=== PATIENT | male | born 1950 | race Caucasian/White ===

== ENCOUNTER 2021-07-25 13:47 | Emergency (ER) | payer MEDICARE ==
[~2021-07-25] VITALS: Ht 188 cm; Wt 82.0 kg
[2021-07-25 15:06] LABS: BASOPHILS # (AUTO) 0.1 X10'3 (0-0.2); BASOPHILS % (AUTO) 1.3 % (0-1); EOSINOPHILS # (AUTO) 0.4 X10'3 (0-0.9); EOSINOPHILS % (AUTO) 6.7 % (0-6); HEMATOCRIT 38.4 % (42.0-52.0); HEMOGLOBIN 13.5 g/dl (14.0-17.9); LYMPHOCYTES % (AUTO) 18.2 % (21-51); MEAN CORPUSCULAR HEMOGLOBIN 32.7 PG (27.0-31.0); MEAN CORPUSCULAR HGB CONC 35.2 g/dL (33.0-36.5); MEAN PLATELET VOLUME 7.8 FL (7.4-10.4); MONOCYTES # (AUTO) 0.4 X10'3 (0-0.9); MONOCYTES % (AUTO) 6.9 % (2-12); NEUTROPHILS # (AUTO) 3.9 X10'3 (1.8-7.7); NEUTROPHILS % (AUTO) 66.9 % (42-75); PLATELET COUNT 183 X10'3 (140-440); RED BLOOD COUNT 4.13 X10'6 (4.70-6.10); RED CELL DISTRIBUTION WIDTH 13.1 % (11.5-14.5); WHITE BLOOD COUNT 5.8 X10'3 (4.5-11.0)
[2021-07-25 15:17] LABS: ALANINE AMINOTRANSFERASE 24 U/L (12-78); ALBUMIN 4.3 G/DL (3.4-5.0); ALBUMIN/GLOBULIN RATIO 1.5 (1.1-1.5); ALKALINE PHOSPHATASE 71 IU/L (46-116); ANION GAP 8 (8-16); ASPARTATE AMINO TRANSFERASE 17 U/L (10-37); BILIRUBIN,TOTAL 0.8 MG/DL (0.1-1.0); BLOOD UREA NITROGEN 17 MG/DL (7-18); BUN/CREATININE RATIO 15.3 (5.4-32.0); CALCIUM 8.5 MG/DL (8.5-10.1); CHLORIDE 104 MMOL/L (99-107); CREATININE 1.11 MG/DL (0.60-1.10); GLUCOSE 112 MG/DL (70-104); POTASSIUM 4.6 MMOL/L (3.5-5.1); SODIUM 142 MMOL/L (135-145); TOTAL CARBON DIOXIDE 29.7 MMOL/L (24-32); TOTAL PROTEIN 7.1 G/DL (6.4-8.2); eGFR 65 ML/MIN
[2021-07-25 15:19] LABS: D-DIMER < 0.19 MG/L FEU (0-0.50)
[2021-07-25] MEDS ORDERED: PRED20TA PO (15:32)
[2021-07-25] MEDS ORDERED: VALA10002 PO (15:32)
[2021-07-25 15:52] VITALS: BP 118/64
== END 2021-07-25 15:53 | disposition home or self-care (01) ==
LOC: ER 13:48
DX: R07.9 Chest pain, unspecified (principal); B02.9 Zoster without complications
CPT/HCPCS: 36415; 71045; 80053; 83880; 84484; 85025; 85379; 93005; 99285

== ENCOUNTER 2022-06-25 09:25 | Outpatient (CLI) | payer OTHER, MEDICARE ==
[~2022-06-25 09:25] MED LIST: VALA10002 PO
== END 2022-06-25 23:59 | disposition home or self-care (01) ==
LOC: LAB 09:25
PROVIDERS: ATTEND Family Medicine
DX: K80.20 Calculus of gallbladder without cholecystitis without obstruction (principal); K63.89 Other specified diseases of intestine; I70.0 Atherosclerosis of aorta; R31.9 Hematuria, unspecified
CPT/HCPCS: 74176

== ENCOUNTER 2022-10-31 10:42 | Emergency (ER) | payer MEDICARE, OTHER ==
[~2022-10-31] VITALS: Ht 188 cm; Wt 86.0 kg
[2022-10-31] MEDS ORDERED: MEMA5TAB PO (11:21)
[2022-10-31] MEDS ORDERED: ATOR40TA PO (11:22)
[2022-10-31 12:31] LABS: BASOPHILS # (AUTO) 0.1 X10'3 (0-0.2); BASOPHILS % (AUTO) 0.8 % (0-1); EOSINOPHILS # (AUTO) 0.1 X10'3 (0-0.9); EOSINOPHILS % (AUTO) 0.7 % (0-6); HEMATOCRIT 37.2 % (42.0-52.0); HEMOGLOBIN 12.5 g/dl (14.0-17.9); LYMPHOCYTES # (AUTO) 1.1 X10'3 (1.1-4.8); LYMPHOCYTES % (AUTO) 7.4 % (21-51); MEAN CORPUSCULAR HEMOGLOBIN 30.7 PG (27.0-31.0); MEAN CORPUSCULAR HGB CONC 33.5 g/dL (33.0-36.5); MEAN CORPUSCULAR VOLUME 91.5 FL (78-98); MEAN PLATELET VOLUME 7.4 FL (7.4-10.4); MONOCYTES # (AUTO) 0.9 X10'3 (0-0.9); MONOCYTES % (AUTO) 6.4 % (2-12); NEUTROPHILS # (AUTO) 12.4 X10'3 (1.8-7.7); NEUTROPHILS % (AUTO) 84.7 % (42-75); PLATELET COUNT 366 X10'3 (140-440); RED BLOOD COUNT 4.07 X10'6 (4.70-6.10); RED CELL DISTRIBUTION WIDTH 13.6 % (11.5-14.5); WHITE BLOOD COUNT 14.6 X10'3 (4.5-11.0)
[2022-10-31 12:48] LABS: ALANINE AMINOTRANSFERASE 93 U/L (12-78); ALBUMIN 2.9 G/DL (3.4-5.0); ALBUMIN/GLOBULIN RATIO 0.7 (1.1-1.5); ALKALINE PHOSPHATASE 233 IU/L (46-116); ANION GAP 4 (8-16); ASPARTATE AMINO TRANSFERASE 43 U/L (10-37); BILIRUBIN,TOTAL 0.7 MG/DL (0.1-1.0); BLOOD UREA NITROGEN 14 MG/DL (7-18); BUN/CREATININE RATIO 14.9 (5.4-32.0); CALCIUM 9.4 MG/DL (8.5-10.1); CHLORIDE 99 MMOL/L (99-107); CREATININE 0.94 MG/DL (0.60-1.10); GLUCOSE 113 MG/DL (70-104); MAGNESIUM 2.4 MG/DL (1.5-2.4); SODIUM 133 MMOL/L (135-145); TOTAL CARBON DIOXIDE 29.6 MMOL/L (24-32); TOTAL PROTEIN 7.2 G/DL (6.4-8.2); eGFR 79 ML/MIN
[2022-10-31] MEDS ORDERED: BENZ-38 PO (13:48)
[2022-10-31] MEDS ORDERED: AZIT-31 PO (13:48)
[2022-10-31 14:13] VITALS: BP 120/74
--- NOTE | 2022-10-31 14:13 | NUR ---
14:12 pt ambulating with pulse ox sat @ 93%. 14:14 pt ambulating with pulse ox around nurses' station sat @ 95%
== END 2022-10-31 15:04 | disposition home or self-care (01) ==
LOC: ER 10:43
DX: J18.9 Pneumonia, unspecified organism (principal); E78.00 Pure hypercholesterolemia, unspecified; Z87.81 Personal history of (healed) traumatic fracture; Z79.899 Other long term (current) drug therapy
CPT/HCPCS: 36415; 71045; 80053; 83735; 84484; 85025; 93005; 99285

== ENCOUNTER 2022-11-08 13:31 | Emergency (ER) | payer OTHER ==
[~2022-11-08] VITALS: Ht 188 cm; Wt 84.1 kg
[~2022-11-08 13:31] MED LIST changes: +ATOR40TA PO; +BENZ-38 PO; +MEMA5TAB PO; -VALA10002 PO
[2022-11-08 13:34] VITALS: BP 121/88
[2022-11-08] MEDS ORDERED: AMOX500C2 PO (16:56)
[2022-11-08] MEDS ORDERED: DOXY100C76 PO (16:56)
[2022-11-08] MEDS ORDERED: BENZ-38 PO (16:56)
== END 2022-11-08 17:33 | disposition home or self-care (01) ==
LOC: ER 13:32
DX: J18.9 Pneumonia, unspecified organism (principal); E78.00 Pure hypercholesterolemia, unspecified; Z87.81 Personal history of (healed) traumatic fracture; Z79.899 Other long term (current) drug therapy; Z79.1 Long term (current) use of non-steroidal anti-inflammatories (NSAID)
CPT/HCPCS: 71045; 99283